=== PATIENT | female | born 1940 ===

== ENCOUNTER 2017-02-17 07:43 | Day surgery (SDC) | payer MEDICARE ==
[2017-02-10 09:36] VITALS: BMI 27.3
[2017-02-17] MEDS ORDERED: Propofol 10 mg/ml Inj (20 ML) ONE ×2 (09:02→10:00)
[2017-02-17] MEDS ORDERED: Midazolam 2 MG/2 ML VIAL ONE (09:08)
[2017-02-17] MEDS ORDERED: Phenylephrine 10 mg/ml Inj ONE (09:42)
[2017-02-17] MEDS ORDERED: ePHEDrine 50 mg/ml Inj ONE (10:03)
[2017-02-17] MEDS ORDERED: Sodium Chloride 0.9% 1,000 ML IV SCH (10:30)
[2017-02-17 11:16] VITALS: RESP 16
[2017-02-17 11:21] VITALS: BP 153/78; PULSE 60; TEMP 98; O2SAT 98
== END 2017-02-17 11:59 | disposition home or self-care (01) ==
LOC: ENDO 07:43
PROVIDERS: ATTEND Internal Medicine Gastroenterology
DX: Z12.11 Encounter for screening for malignant neoplasm of colon (principal); K63.5 Polyp of colon; K64.1 Second degree hemorrhoids; K29.70 Gastritis, unspecified, without bleeding; B96.81 Helicobacter pylori [H. pylori] as the cause of diseases classified elsewhere; K21.0 Gastro-esophageal reflux disease with esophagitis; R13.10 Dysphagia, unspecified
CPT/HCPCS: 43239; 45380; 88305; 88312; 88342; J0360; J2001; J2250; J2370; J2704; J3010; J7040 ×2